=== PATIENT | female | born 1975 | race Caucasian/White ===

== ENCOUNTER 2025-07-19 09:26 | Emergency (ER) | payer OTHER, SELFPAY ==
[2025-07-19 09:27] VITALS: BP 132/77
[2025-07-19] MEDS: ROXICODONE 5 MG PO (10:27)
[2025-07-19] MEDS: VALIUM 5 MG PO (10:28)
--- NOTE | 2025-07-19 10:43 | ED.GENMED ---
History of Present Illness
General
Chief Complaint: Back Pain
Source: patient
Exam Limitations: none
Time Seen by Provider: 07/19/25 09:46
Nursing documentation reviewed up to this point in time: agreed with
History of Present Illness
History of Present Illness:
The patient is a very pleasant 49-year-old female reports that she bent down while doing laundry and suddenly felt severe pain in her left lower back. Patient reports that the pain extends from her left lower back down into her left hip and left
buttock area. She denies weakness and numbness of the legs. She denies bowel or bladder incontinence. Patient reports that she has had a history of right sided back pain shooting down her right leg, however, she generally does not have it on the
left side. Patient reports that she has a Medrol Dosepak that is unexpired at home so she just started it this morning. Additionally, patient reports she took Motrin and Tylenol without relief. Patient reports that walking is extremely
challenging due to the pain.
Past History
Past History
ED Past Medical History: Psychiatric (Anxiety), Other (Endometriosis) and Other (Crohn's disease)
ED Past Surgical History: Appendectomy, Bowel resection, Cholecystectomy, (X 2), Gynecological (Transabdominal hysterectomy/bilateral salpingectomy 2017) and Other (Intestinal surgery in 2000 or 6 inches of small intestine and a portion
of the colon was removed for Crohn's disease, gastric sleeve 2016)
Social History
Tobacco: Former smoker
Alcohol: None
Drug: None
Personal:
Living: with family
Employment: Employed (at chiropractor's office)
Family History
Family History: Other (Dad with an [place] at 60 and CABG x2)
Review of Systems
Review of Systems
Allergies reviewed?: Yes
All Other Systems: ROS reviewed and negative except as documented in HPI and ROS
Constitutional: Reports no symptoms
EENT: Reports no symptoms
Respiratory: Reports no symptoms
Cardiac: Reports no symptoms
ABD/GI: Reports no symptoms
: Reports no symptoms
Musculoskeletal: Reports muscle stiffness and back pain
Skin: Reports no symptoms
Neurological: Reports no symptoms
Endocrine: Reports no symptoms
Hematologic/Lymphatic: Reports no symptoms
Psychiatric: Reports no symptoms
Phy Exam
Physical Exam
Physical Exam:
Physical Exam
General: Patient appears uncomfortable.
Neck: supple.
Heart: s1/s2 regular rate and rhythm, no murmur. equal radial and femoral pulses bilaterally.
Lungs: no acute respiratory distress. clear bilaterally
Abdomen: normal bowel sounds. not tender. no CVAT. No pulsatile mass. Paralumbar spine tenderness on exam.
Neuro: alert and oriented. no focal neurological deficits. 5 out of 5 strength in lower extremities. No saddle anesthesia
Skin: no rash
Psychiatric: well kept. interactive and cooperative
Extremities: no edema. no calf tenderness. negative homans. good distal pulses
Course
Orders/Labs/Results
Orders:
Orders
07/19/25 10:19
Oxycodone [Roxicodone] 5 mg PO NOW STA
07/19/25 10:21
Diazepam [Valium] 5 mg PO NOW STA
07/19/25 10:48
Lumbar Spine Complete, 4 View [CR Lumbar Spine Comp Min 4 Vw*] Urgent
Comment:
Reason For Exam: bent down, sudden back pain left side
Vital Signs
Initial and Last Documented VS:
Initial Vital Signs
Temp Pulse Resp BP Pulse Ox
97.9 F 89 20 132/77 98
07/19/25 09:27 07/19/25 09:27 07/19/25 09:27 07/19/25 09:27 07/19/25 09:27
Last Documented Vital Signs
Temp Pulse Resp BP Pulse Ox
97.9 F 89 20 132/77 98
07/19/25 09:27 07/19/25 09:27 07/19/25 09:27 07/19/25 09:27 07/19/25 10:45
MDM/Problems Addressed
Differential Diagnosis Includes:
Musculoskeletal strain, lumbar radiculopathy, acute sciatica
MDM/Problems Addressed:
Patient presents with acute back pain after bending down
Chronic conditions affecting care:
Chronic back pain on right side
Acute Exacerbation and/or Progression of Chronic Illness:
Patient may have acute exacerbation of back pain, now presenting on the left
*Radiology
Radiology exam reviewed: preliminary read by ED provider (Lumbar x-ray reviewed by me. No acute fracture disalignment) and radiology read reviewed
*Pulse Oximetry
SaO2: 98
Oxygen Mode of Delivery: Room air
Patient hypoxic: no
*EKG
Interpreted by ED Provider?: NA
*Harmonica Maker Interpretation
Rate: Harmonica Maker- N/A
*Critical Care Note
Total Time (30-74mins, 75-104mins- exclusive of procedures): Not Applicable
Data Reviewed
Review of Other/Old Records Reveals: Radiology Studies (CT abdomen pelvis from 2022 showed no lumbar spine fracture)
Patient Management
Social determinants of health affecting care: Living situation and Strong social support
Escalation/DeEscalation of care consider admission/obs:
Patient appears better at 12:15 PM. Able to get up and walk to the bathroom with some degree of pain. Has an appointment with her spine doctor this Sunday.
ED Attending Note
-
Portions of this chart may have been created with voice recognition software.� Occasional wrong word or��sound alike� substitutions may have occurred due to the inherent limitations of voice recognition software.
Discharge Plan
Departure
Patient Disposition: Home (Routine Discharge)
Date of Disposition: 07/19/25
Time of Disposition: 12:08
Patient with high blood pressure during this ER visit?: Yes
Condition: Good
Covid-19: Not Applicable
Discharge Problem:
Low back pain
Instructions: Low Back Pain (DC), BLOOD PRESSURE
Prescriptions:
New
ketorolac 10 mg tablet
10 mg PO Q8H PRN (Reason: Pain) Qty: 8 0RF
Rx Instructions:
maximum total duration of 5 days from all oral, intranasal, or parenteral formulations
diazepam [Valium] 5 mg tablet
5 mg PO BID PRN (Reason: muscle spasm) Qty: 10 0RF
No Action
sertraline 100 MG tablet
100 mg PO DAILY
ondansetron HCl 4 mg tablet
4 mg PO Q8H PRN (Reason: nausea/vomiting)
gabapentin 400 mg capsule
400 mg PO TID
quetiapine 200 mg tablet
200 mg PO TID
Pulmicort Flexhaler 90 mcg/actuation aerosol powdr breath activated
2 inh INHALATION R BID
buprenorphine-naloxone 8-2 mg film
1 film sublingual BID
Patient Comments:
12/19/2022: last filled 12/18/2022, 60 film for 30 days from [facility]
lorazepam 0.5 mg Tablet
0.5 mg PO BIDPRN PRN (Reason: anxiety) Qty: 14 0RF
ferrous sulfate 325 mg (65 mg iron) tablet
325 mg PO DAILY Qty: 100 0RF
albuterol sulfate 90 mcg/actuation HFA aerosol inhaler
1 puff inhalation Q6H PRN (Reason: shortness of breath or wheezing) Qty: 8.5 0RF
metronidazole 500 mg Tablet
500 mg PO Q8 40 Days Qty: 120 0RF
Rx Instructions:
take 6 AM, 2 PM, 10 PM
cefdinir 300 mg Capsule
300 mg PO Q12 40 Days Qty: 80 0RF
Rx Instructions:
tolerated well in hospital without allergy
guaifenesin 600 mg Tablet Extended Release 12hr
600 mg PO Q12 Qty: 30 0RF
Referrals:
Alysa Mejia MD [Family Provider, Internal Medicine]
Activity Restrictions/Additional Instructions:
Take Toradol every 8 hours as needed for pain. Do not combine Toradol with any other NSAID such as Advil, Motrin, ibuprofen or Aleve.
Follow-up with your medicare specialist as scheduled this week. Continue the Medrol Dosepak as started
Take Valium as needed for severe pain. Do not drink alcohol or drive while using Valium
Interventions
Interventions:
*Risk Screen - Suicide Last Done: 07/19/25 09:27
*General Assessment Last Done: 07/19/25 09:27
*Neglect/Abuse Screening Last Done: 07/19/25 09:27
Discharge Date and Time
Print Language: PORTUGUESE
== END 2025-07-19 12:15 | disposition home or self-care (01) ==
LOC: EMR 09:26
PROVIDERS: EMERGENCY PHYSICIAN Emergency Medicine; FAMILY PHYSICIAN Hospitalist
DX: M54.50 Low back pain, unspecified (principal); G89.29 Other chronic pain; Z87.891 Personal history of nicotine dependence; Z98.84 Bariatric surgery status; Z90.79 Acquired absence of other genital organ(s); Z90.710 Acquired absence of both cervix and uterus; Z90.49 Acquired absence of other specified parts of digestive tract
CPT/HCPCS: 99283; 72110